=== PATIENT | female | born 1985 ===

== ENCOUNTER 2018-03-31 15:00 | Emergency (ER) | payer BC, OTHER ==
[2018-03-31 15:20] VITALS: BP 133/79
--- NOTE | 2018-03-31 15:30 | UC ---
Complaint Female HPI - HPI Summary HPI Summary: Patient states she cannot remove tampon that was placed earlier today around noon since the thread came off of it. Denies vaginal discharge, chills, fever. - History Of Current Complaint Chief Complaint: UCGU Stated Complaint: PERSONAL Time Seen by Provider: 03/31/18 15:17 Hx Obtained From: Patient Hx Last Menstrual Period: 03/29/18 ?: No Onset/Duration: Sudden Onset, Lasting Hours Timing: Constant Pain Intensity: 0 Character: Not Applicable Aggravating Factor(s): Nothing Associated Signs And Symptoms: Positive: Negative - Risk Factors Ectopic Risk Factor: Negative - Allergies/Home Medications Allergies/Adverse Reactions: Allergies Allergy/AdvReac Type Severity Reaction Status Date / Time No Known Allergies Allergy Verified 03/31/18 15:21 Home Medications: Home Medications lamoTRIgine TAB(*) [LaMICtal TAB(*)] 100 mg PO BID 03/31/18 [History Confirmed 03/31/18] PMH/Surg Hx/FS Hx/Imm Hx Previously Healthy: Yes Psychological History: Bipolar Disorder - Surgical History Surgical History: Yes Surgery Procedure, Year, and Place: tubal. D & C. Breast reduction. tubes in ears - Social History Alcohol Use: None Substance Use Type: None Smoking Status (MU): Never Smoked Tobacco Review of Systems Constitutional: Negative All Other Systems Reviewed And Are Negative: Yes Physical Exam Triage Information Reviewed: Yes Appearance: Well-Appearing, No Pain Distress, Obese Vital Signs: Initial Vital Signs Temp 98.3 F 03/31/18 15:16 Pulse 91 03/31/18 15:16 Resp 16 03/31/18 15:16 BP 133/79 03/31/18 15:16 Pulse Ox 98 03/31/18 15:16 Vital Signs Reviewed: Yes Eyes: Positive: Conjunctiva Clear ENT: Positive: Hearing grossly normal Neck: Positive: Supple Respiratory: Positive: Chest non-tender Cardiovascular: Positive: Pulses Normal, Brisk Capillary Refill Abdomen Description: Positive: Nontender Pelvic Exam: Positive: External Exam Normal, Active Bleeding, Other - tampoon on cul de sac Complaint Female Dx - Course Course Of Treatment: Tampon was removed successfully with forceps. Patient tolerated procedure well - Differential Dx/Diagnosis Provider Diagnoses: Foreign body in Vagina Discharge - Sign-Out/Discharge Documenting (check all that apply): Patient Departure All imaging exams completed and their final reports reviewed: No Studies - Discharge Plan Condition: Stable Disposition: HOME Patient Education Materials: Vaginal Foreign Body (ED) Referrals: No Primary Care Phys,NOPCP [Primary Care Provider] - [facility] [place]] - Billing Disposition and Condition Condition: STABLE Disposition: Home
== END 2018-03-31 15:43 | disposition home or self-care (01) ==
LOC: UCCORT 15:00
DX: T19.2XXA Foreign body in vulva and vagina, initial encounter (principal)
CPT/HCPCS: 99202; G0463